=== PATIENT | female | born 1940 | race American Indian/Alaskan Native ===

== ENCOUNTER 2017-12-29 08:18 | Inpatient (IN) | payer MEDICARE ==
[2017-12-27 15:18] VITALS: BMI 35.5
--- NOTE | 2017-12-29 09:18 | CP.PCM.CON ---
History of Present Illness - History of Present Illness History of Present Illness: Orthopedic H&P/consult Patient is a 77 y/o female w/ PMH of RA, HTN, GERD and L TKA who presents for elective R TKA with Dr. Aguirre. Patient has had right knee pain for many years which has progressively worsened over the past few months. Her daily activities , including walking, standing and climbing stairs are severely limited secondary to the pain. She has tried and failed conservative management with oral meds and PT, as well as intra-articular injection. She walks with a cane. Currently the pain is mild, describing it as soreness. It is associated with stiffness and swelling which has progressed. She denies radiation of pain, numbness or tingling. She denies CP/SOB/N/V/D/fever/dysuria/melena. She denies any cardiac events or history of stents/DVT/PE/stroke. Review of Systems - Review of Systems All systems: reviewed and no additional remarkable complaints except Review of Systems: as per HPI Past Patient History - Infectious Disease Hx of Infectious Diseases: None - Past Medical History & Family History Past Medical History?: Yes Past Family History: Reviewed and not pertinent - Past Social History Smoking Status: Never Smoked Alcohol: None Drugs: Denies - CARDIAC Hx Cardiac Disorders: Yes Hx Hypertension: Yes - PULMONARY Hx Respiratory Disorders: No - NEUROLOGICAL Hx Neurological Disorder: No - HEENT Hx HEENT Problems: No - RENAL Hx Chronic Kidney Disease: Yes Other/Comment: CKD - ENDOCRINE/METABOLIC Hx Endocrine Disorders: No - HEMATOLOGICAL/ONCOLOGICAL Hx Blood Disorders: Yes Hx Anemia: Yes Hx Blood Transfusions: Yes - INTEGUMENTARY Hx Dermatological Problems: No - MUSCULOSKELETAL/RHEUMATOLOGICAL Hx Musculoskeletal Disorders: Yes Hx Arthritis: Yes Hx Falls: No Hx Osteoarthritis: Yes Hx Rheumatoid Arthritis: Yes - GASTROINTESTINAL Hx Gastrointestinal Disorders: Yes Hx Gastroesophageal Reflux: Yes - GENITOURINARY/GYNECOLOGICAL Hx Genitourinary Disorders: No - PSYCHIATRIC Hx Psychophysiologic Disorder: No Hx Substance Use: No - SURGICAL HISTORY Hx Surgeries: Yes Hx Hysterectomy: Yes Hx Joint Replacement: Yes (Left TKA 2016) Other/Comment: Hemorroidectomy. - ANESTHESIA Hx Anesthesia: Yes Hx Anesthesia Reactions: No Hx Malignant Hyperthermia: No Meds Allergies/Adverse Reactions: Allergies Allergy/AdvReac Type Severity Reaction Status Date / Time No Known Allergies Allergy Verified 11/19/17 15:06 - Medications Medications: methotrexate Physical Exam - Constitutional Appears: Well, No Acute Distress - Head Exam Head Exam: ATRAUMATIC, NORMOCEPHALIC - Eye Exam Eye Exam: EOMI, Normal appearance - ENT Exam ENT Exam: Mucous Membranes Moist - Respiratory Exam Respiratory Exam: Clear to Auscultation Bilateral, NORMAL BREATHING PATTERN - Cardiovascular Exam Cardiovascular Exam: REGULAR RHYTHM - GI/Abdominal Exam GI & Abdominal Exam: Normal Bowel Sounds, Soft - Extremities Exam Additional comments: Right knee: mild swelling, mild effusion, no tenderness, no lesions sensation intact SP/DP/TN motor intact EHL/FHL/TA/G pedal pulses intact comps soft NT left knee: no swelling, no effusion, no tenderness Old TKR scar well healed sensation intact SP/DP/TN motor intact EHL/FHL/TA/G pedal pulses intact comps soft NT - Neurological Exam Neurological exam: Alert, Oriented x3 - Psychiatric Exam Psychiatric exam: Normal Affect, Normal Mood - Skin Skin Exam: Normal Color, Warm Results - Labs Result Diagrams: 12/29/17 10:21 Assessment & Plan (1) Osteoarthritis of right knee Assessment and Plan: -OR today for R TKA -NPO -CBC & T&C stat -UA -admit to Hospitalist -Pros/cons/risks/benefits of procedure were explained to patient in detail. Patient expresses understanding and agrees to proceed with proposed procedure. -Patient presents preoperatively with Anemia. HGB:8.9 drawn today. Patient desires to proceed with procedure despite this. She agrees to be transfused 2 units of PRBC's. This was discussed with Dr. Aguirre in agreement -above d/w Dr. Aguirre in agreement Status: Acute - Date & Time Date: 12/29/17 Time: :18
[2017-12-29 10:32] LABS: BASO # 0.1 K/uL (0.0-0.2); BASO % 1.3 % (0.0-2.0); EOS # 0.1 K/uL (0.0-0.7); EOS % 2.6 % (0.0-4.0); HEMOGLOBIN 8.9 g/dL (11.0-16.0); LYMPH # 1.3 K/uL (1.0-4.3); LYMPH % 26.7 % (20.0-40.0); MEAN CORPUSCULAR HEMOGLOBIN 31.1 pg (27.0-31.0); MEAN CORPUSCULAR HGB CONC 33.8 g/dL (33.0-37.0); MEAN PLATELET VOLUME 8.5 fL (7.2-11.7); MONO # 0.5 K/uL (0.0-0.8); MONO % 9.9 % (0.0-10.0); NEUT # 2.8 K/uL (1.8-7.0); NEUT % 59.5 % (50.0-75.0); NRBC % 0.1 % (0.0-2.0); RBC 2.85 Mil/uL (3.80-5.20); WHITE BLOOD COUNT 4.7 K/uL (4.8-10.8)
[2017-12-29] MEDS ORDERED: Tranexamic Acid 1,000 MG in Sodium Chloride 0.9% 50 ML IV ONE (10:41)
[2017-12-29] MEDS ORDERED: Bupivacaine 0.25% 20 ML INJ IJ ONE ×2 (12:39→12:42)
[2017-12-29] MEDS ORDERED: Midazolam 2 MG/2 ML VIAL ONE (12:43)
[2017-12-29] MEDS ORDERED: Propofol 10 mg/ml Inj (20 ML) ONE (12:43)
[2017-12-29] MEDS ORDERED: Rocuronium 10 mg/ml (5 ml) ONE (13:14)
[2017-12-29] MEDS ORDERED: ceFAZolin IV 2 gm in Dextrose 2 GM/50 ML BAG IVPB ONE (13:16)
--- NOTE | 2017-12-29 13:20 | PCM.ANESB3 ---
Femoral Nerve Block - Femoral Nerve Block Date of Procedure: 12/29/17 Anesthesiologist: Sandra Pre-Procedure Diagnosis: right knee osteoarthritis Post-Procedure Diagnosis: right knee osteoarthritis Procedure Performed: Femoral Nerve Block Right - Procedure Femoral Nerve Block: The procedure was explained to the patient that it is for the post-operative pain management. Consent was obtained after a thorough discussion with the patient regarding the benefits and possible complications of local anesthetic block of the femoral nerve at the inguinal crease area. The patient was brought to the operating room and standard monitors were applied. Time-out was held with the circulating nurse to confirm the correct surgery and the appropriate block. After applying oxygen by nasal cannula and administering IV Sedation, patient was placed in supine position with fully extended lower extremities and the right groin exposed. The femoral artery was then carefully palpated. The ultrasound transducer was then applied to this area in the transverse plane and the femoral nerve was visualized lateral to the femoral artery and underneath the fascia iliaca. After thorough identification, the inguinal crease area was prepped with chloraprep. At this point, a #22 gauge Stimuplex 4-inch needle was inserted immediately lateral to the femoral artery pulse at the inguinal crease and advanced perpendicularly. The needle was inserted to the ultrasound transducer in-plane towards the femoral nerve in a [id number] direction. Needle advancement was performed carefully under direct ultrasound visualization. Nerve stimulator was used and twitch of the quadriceps muscle was obtained at current of 0.5MA. After negative aspiration, 2cc of 0.25% Bupivacaine + Epi 1:200,000 was injected and this was followed with 28cc of 0.25% Bupivacaine + Epi 1:200,000. Under constant ultrasound guidance the local anesthetics were observed spreading below fascia iliaca and around the femoral nerve. Negative intermittent aspiration. The needle was removed intact and sterile dressing was applied. The patient had stable vital signs, was conscious and in no apparent distress. The patient tolerated the femoral nerve block well with stable vital signs and was prepared for subsequent surgery.
[2017-12-29] MEDS ORDERED: Thrombin Topical 5,000 Int Units Spray Kit ONE (13:39)
[2017-12-29] MEDS ORDERED: Absorbable Gelatin Sponge Size 100 ONE (13:39)
[2017-12-29] MEDS: Bacitracin 150,000 UNIT in Sodium Chloride 0.9% Irrig 3,000 ML IR SCH ×2 (13:45→15:00)
[2017-12-29] MEDS ORDERED: Neostigmine Methylsulfate 3mg/3ml Syringe IV ONE (15:17)
[2017-12-29] MEDS ORDERED: Labetalol 25mg/5ml Syringe ONE (16:11)
[2017-12-29] MEDS ORDERED: Dexamethasone 4 mg/1 ml IVP PRN (16:29)
[2017-12-29] MEDS: HYDROmorphone 0.5 mg/0.5 ml ISec IVP PRN ×4 (16:54→17:48)
--- NOTE | 2017-12-29 17:05 | RAD ---
Date of service: 12/29/2017 PROCEDURE: Right Knee Radiographs. HISTORY: s/p R TKA COMPARISON: None. FINDINGS: Patient status post total right knee arthroplasty prosthetic components seen in good alignment. A small amount expected air and fluid is seen in the suprapatellar bursa. Skin jadyn are present anteriorly. IMPRESSION: Status post total right knee arthroplasty.
[2017-12-29] MEDS ORDERED: Sodium Chloride 0.9% 1,000 ML IV ONE (18:00)
[2017-12-29 18:16] LABS: FLUID TYPE SYNOVIAL FLUID
--- NOTE | 2017-12-29 18:24 | PCM.SURG1 ---
Surgeon's Initial Post Op Note - Surgeon's Notes Surgeon: Carla Mitigation Supervisor: HARESH Pedroza, 2nd assist Lex Frausto PA-C Type of Anesthesia: General Endo, Spinal Anesthesia Administered By: DR Li Pre-Operative Diagnosis: severe tricompasrtmental O/A R knee. morbid obesity Operative Findings: severe tricompartmental O/AQ R knee. tricompartmental synovitis. p[osterior capsular contracture. ]lateral patella contracture Post-Operative Diagnosis: as above Operation Performed: R TKR. posterior capsular release. lateral patella release. anterior and posterior synovectomy. computer navigation Specimen/Specimens Removed: cartilage/synovoium/bone Estimated Blood Loss: EBL {In ML}: 125 Blood Products Given: N/A Drains Used: Wound Vac Post-Op Condition: Fair Date of Surgery/Procedure: 12/29/17 Time of Surgery/Procedure: 13:30 (time in room 12:40/anaesthesia indcution time 1240)
[2017-12-29 19:07] LABS: SF GROSS APPEARANCE CLEAR (CLEAR)
[2017-12-29 19:08] LABS: SYNOVIAL FLUID MONO/MACROPHAGE 18 % (0-0)
--- NOTE | 2017-12-29 19:52 | CP.PCM.HP ---
Addendum entered and electronically signed by Christine Sanderson DO 12/29/17 21:36 : vitamin D level noted on labs 12/09/17 in chart level was 15. Original Note: <Christine Sanderson - Last Filed: 12/29/17 21:24> History of Present Illness - History of Present Illness History of Present Illness: Medicine Note for Hospitalist Service HPI: This is a 77 year old female with PMHx of HTN, RA, Anemia and Constipation who is s/p right total knee replacement POD #0 (12/29/17) by Dr. Aguirre. Patient reports her pain is well controlled. She states she feels a little groggy but otherwise no acute complaints. Denied any associated fever, chills, headache, chest pain, shortness of breath, abdominal pain, n/v/d/c, or urinary symptoms. PMHx: HTN, RA, Anemia, Constipation PSHx: Hysterectomy, L TKR (2017), now R TKR Meds: ASA, Norvasc 5mg daily, MTX once a week, Folic Acid, Protonix, and nabumetone 75mg PO BID, All: NKDA SHx: Denied any tobacco, alcohol or illicit drug use FHx: Unremarkable for any cardiac issues or CVA. Breast CA in mother. Patient's mammograms have been normal up to date; last 2 years ago. PMD: Dr. Hairston ([place], [place]) Rheum: Dr. Blanchard Present on Admission - Present on Admission Any Indicators Present on Admission: No Past Patient History - Infectious Disease Hx of Infectious Diseases: None - Past Medical History & Family History Past Medical History?: Yes - Past Social History Smoking Status: Never Smoked Alcohol: None Drugs: Denies - CARDIAC Hx Cardiac Disorders: Yes Hx Hypertension: Yes - PULMONARY Hx Respiratory Disorders: No - NEUROLOGICAL Hx Neurological Disorder: No - HEENT Hx HEENT Problems: No - RENAL Hx Chronic Kidney Disease: Yes Other/Comment: CKD - ENDOCRINE/METABOLIC Hx Endocrine Disorders: No - HEMATOLOGICAL/ONCOLOGICAL Hx Blood Disorders: Yes Hx Anemia: Yes Hx Blood Transfusions: Yes - INTEGUMENTARY Hx Dermatological Problems: No - MUSCULOSKELETAL/RHEUMATOLOGICAL Hx Musculoskeletal Disorders: Yes Hx Arthritis: Yes Hx Falls: No Hx Osteoarthritis: Yes Hx Rheumatoid Arthritis: Yes - GASTROINTESTINAL Hx Gastrointestinal Disorders: Yes Hx Gastroesophageal Reflux: Yes - GENITOURINARY/GYNECOLOGICAL Hx Genitourinary Disorders: No - PSYCHIATRIC Hx Psychophysiologic Disorder: No Hx Substance Use: No - SURGICAL HISTORY Hx Surgeries: Yes Hx Hysterectomy: Yes Hx Joint Replacement: Yes (Left TKA 2016) Other/Comment: Hemorroidectomy. - ANESTHESIA Hx Anesthesia: Yes Hx Anesthesia Reactions: No Hx Malignant Hyperthermia: No Meds Allergies/Adverse Reactions: Allergies Allergy/AdvReac Type Severity Reaction Status Date / Time No Known Allergies Allergy Verified 04/25/17 15:06 Physical Exam - Constitutional Appears: No Acute Distress - Head Exam Head Exam: NORMAL INSPECTION, NORMOCEPHALIC - Eye Exam Eye Exam: EOMI, Normal appearance, PERRL. absent: Nystagmus, Scleral icterus Pupil Exam: NORMAL ACCOMODATION, PERRL - ENT Exam ENT Exam: Mucous Membranes Moist, Normal Exam - Neck Exam Neck exam: Positive for: Normal Inspection. Negative for: Lymphadenopathy, Thyromegaly - Respiratory Exam Respiratory Exam: Clear to Auscultation Bilateral, NORMAL BREATHING PATTERN. absent: Decreased Breath Sounds - Cardiovascular Exam Cardiovascular Exam: REGULAR RHYTHM, RRR - GI/Abdominal Exam GI & Abdominal Exam: Normal Bowel Sounds, Soft. absent: Distended, Firm, Guarding, Organomegaly, Tenderness - Extremities Exam Extremities exam: Positive for: pedal pulses present Additional comments: right leg braced and ice applied - Neurological Exam Neurological exam: Alert, CN II-XII Intact, Oriented x3 - Psychiatric Exam Psychiatric exam: Normal Affect, Normal Mood - Skin Skin Exam: Dry, Intact, Normal Color, Warm Results - Vital Signs Recent Vital Signs: Last Vital Signs Temp 97 F L 12/29/17 18:00 Pulse 64 12/29/17 18:00 Resp 11 L 12/29/17 18:00 BP 163/83 H 12/29/17 18:00 Pulse Ox 96 12/29/17 18:00 - Labs Result Diagrams: 12/29/17 20:26 Labs: Laboratory Results - last 24 hr 12/29/17 12/29/17 12/29/17 10:21 11:21 18:15 WBC 4.7 L RBC 2.85 L Hgb 8.9 L Hct 26.2 L MCV 92.0 MCH 31.1 H MCHC 33.8 RDW 15.0 H Plt Count 190 MPV 8.5 Neut % (Auto) 59.5 Lymph % (Auto) 26.7 [place] % (Auto) 9.9 Eos % (Auto) 2.6 Baso % (Auto) 1.3 Neut # (Auto) 2.8 Lymph # (Auto) 1.3 [place] # (Auto) 0.5 Eos # (Auto) 0.1 Baso # (Auto) 0.1 Fluid Type Synovial fluid Synovial WBC 15.0 Synovial RBC 346.0 H Synovial Neutrophils 34.0 H Synovial Lymphocytes 48.0 H Synov Monos/Macrophage 18 H Synovial Fluid Comment Blood Type A POSITIVE Antibody Screen Negative Assessment & Plan - Assessment and Plan (Free Text) Plan: Right Total Knee Replacement - 12/29/[address] Aguirre - Patient found to have: severe tricompartmental O/AQ R knee, tricompartmental synovitis, posterior capsular contracture, and lateral patella contracture - F/U right knee tap cytology Medications: - Tylenol, percocet, and dilaudid PRN for pain - Zofran PRN for nausea - PPX with Cefazolin x 2 bags, IVF x 2 bags Hx Anemia - Etiology 2/2 MTX?, Renal Insufficiency? - Resumed Feosal BID - Transfused 3 units PRBCs post op - Baseline hemoglobin ~ 9 seen on labs drawn on 12/09/17 - Will continue to monitor and transfuse as needed, H/H > 10 Hx Renal Insuffiency - Noted on previous labs during last admission 2016, CRE 1.4/5 - CRE 1.5 seen on labs drawn on 12/09/17 - Will continue to monitor Hx HTN - Resumed Norvasc 5mg PO daily - HHD Hx RA - Resumed weekly MTX (due 01/05/18) and Folic Acid daily Hx Constipation - Colace BID, Miralax daily Vitamin D Deficiency - Started on Ergocalcitriol weekly x 6 months IGT - A1C 5.8 noted on labs drawn on 12/09/17 - Encouraged diet, exercise, and weight loss Bilateral Lower Extremity Edema - Outpatient ECHO reviewed (copy in chart); no evidence of HF - Encouraged compression stockings once patient is ambulatory and OK by ortho, for history of bilateral lower extremity swelling. Also to speak to PMD as Norvasc is known to cause edema, for possible change in blood pressure medication. Prophylactic Measures - GI PPX: Protonix - DVT PPX: Lovenox daily, SCDs c/i s/p surgery - Case management referral for TORI placement - PT/OT DW Christine Petty DO, PGY-2 <Rufino Hicks P - Last Filed: 12/30/17 07:08> Results - Vital Signs Recent Vital Signs: Last Vital Signs Temp 97.6 F 12/30/17 05:40 Pulse 76 12/30/17 04:00 Resp 20 12/30/17 04:00 BP 146/82 12/30/17 04:00 Pulse Ox 96 12/30/17 04:00 - Labs Result Diagrams: 12/29/17 20:26 Labs: Laboratory Results - last 24 hr 12/29/17 12/29/17 12/29/17 10:21 11:21 18:15 WBC 4.7 L RBC 2.85 L Hgb 8.9 L Hct 26.2 L MCV 92.0 MCH 31.1 H MCHC 33.8 RDW 15.0 H Plt Count 190 MPV 8.5 Neut % (Auto) 59.5 Lymph % (Auto) 26.7 [place] % (Auto) 9.9 Eos % (Auto) 2.6 Baso % (Auto) 1.3 Neut # (Auto) 2.8 Lymph # (Auto) 1.3 [place] # (Auto) 0.5 Eos # (Auto) 0.1 Baso # (Auto) 0.1 Urine Color Urine Clarity Urine pH Ur Specific [place] Urine Protein Urine Glucose (UA) Urine Ketones Urine Blood Urine Nitrate Urine Bilirubin Urine Urobilinogen Ur Leukocyte Esterase Urine WBC (Auto) Urine RBC (Auto) Ur Squamous Epith Cells Urine Bacteria Hyaline Casts Fluid Type Synovial fluid Synovial WBC 15.0 Synovial RBC 346.0 H Synovial Neutrophils 34.0 H Synovial Lymphocytes 48.0 H Synov Monos/Macrophage 18 H Synovial Fluid Comment Blood Type A POSITIVE Antibody Screen Negative 12/29/17 12/30/17 20:26 06:47 WBC 8.4 D RBC 3.55 L Hgb 11.2 D Hct 32.9 L MCV 92.8 MCH 31.6 H MCHC 34.0 RDW 15.0 H Plt Count 180 MPV 8.1 Neut % (Auto) Lymph % (Auto) [place] % (Auto) Eos % (Auto) Baso % (Auto) Neut # (Auto) Lymph # (Auto) [place] # (Auto) Eos # (Auto) Baso # (Auto) Urine Color Yellow Urine Clarity Hazy Urine pH 5.0 Ur Specific [place] 1.025 Urine Protein 1+ H Urine Glucose (UA) Normal Urine Ketones Negative Urine Blood 1+ H Urine Nitrate Negative Urine Bilirubin Negative Urine Urobilinogen Normal Ur Leukocyte Esterase 3+ H Urine WBC (Auto) 20 H Urine RBC (Auto) 15 H Ur Squamous Epith Cells 41 H Urine Bacteria Occ H Hyaline Casts 3-5 H Fluid Type Synovial WBC Synovial RBC Synovial Neutrophils Synovial Lymphocytes Synov Monos/Macrophage Synovial Fluid Comment Blood Type Antibody Screen Attending/Attestation - Attestation I have personally seen and examined this patient.: Yes I have fully participated in the care of the patient.: Yes I have reviewed all pertinent clinical information: Yes Notes (Text): 12/30/17 07:04 Admitted post right knee surg, h/o chronic anemia, no h/o iron deficiency, patient chronically on methotrexate for RA and NSAIDs, no events with surg. Chronic anemia need out patient w/u, dd of chronic disease vs from methotrexated , vs bm, will check b12. CRI penidng cmp results. Pain control, PT/OT, dc home or rehab depending on the needs, gi/dvt prophylaxis.
[2017-12-29 20:34] LABS: MEAN CELL VOLUME 92.8 fL (81.0-99.0); MEAN CORPUSCULAR HEMOGLOBIN 31.6 pg (27.0-31.0); MEAN PLATELET VOLUME 8.1 fL (7.2-11.7); RBC 3.55 Mil/uL (3.80-5.20)
[2017-12-29 20:38] LABS: HEMOGLOBIN 11.2 g/dL (11.0-16.0); WHITE BLOOD COUNT 8.4 K/uL (4.8-10.8)
[2017-12-29] MEDS: oxyCODONE 5 mg Immediate Release Tab PO PRN (20:51)
[2017-12-29] MEDS: ceFAZolin IV 2 gm in Dextrose 2 GM/50 ML BAG IVPB SCH (21:05)
[2017-12-30] MEDS: HYDROmorphone 1 mg/ml ISec IVP PRN ×4 (01:24→21:56)
[2017-12-30] MEDS: oxyCODONE 5 mg Immediate Release Tab PO PRN (04:35)
[2017-12-30] MEDS: ceFAZolin IV 2 gm in Dextrose 2 GM/50 ML BAG IVPB SCH (04:36)
[2017-12-30] MEDS: Sodium Chloride 0.9% 1,000 ML IV SCH ×2 (04:38)
[2017-12-30 06:54] LABS: SQUAMOUS EPITHIAL 41 /hpf (0-5); URINE BACTERIA OCC (<OCC); URINE BILIRUBIN NEGATIVE (NEGATIVE); URINE CLARITY Hazy (Clear); URINE COLOR Yellow (YELLOW); URINE GLUCOSE (UA) NORMAL (Normal); URINE LEUKOCYTE ESTERASE 3+ Leu/uL (Negative); URINE PROTEIN 1+ mg/dL (NEGATIVE); URINE UROBILINOGEN NORMAL mg/dL (0.2-1.0)
[2017-12-30 06:55] LABS: URINE BLOOD 1+ (NEGATIVE)
[2017-12-30 07:22] LABS: BASO % 0.5 % (0.0-2.0); EOS # 0.1 K/uL (0.0-0.7); EOS % 1.1 % (0.0-4.0); HEMOGLOBIN 10.1 g/dL (11.0-16.0); LYMPH # 0.8 K/uL (1.0-4.3); LYMPH % 12.1 % (20.0-40.0); MEAN CELL VOLUME 92.4 fL (81.0-99.0); MEAN CORPUSCULAR HEMOGLOBIN 31.3 pg (27.0-31.0); MEAN CORPUSCULAR HGB CONC 33.9 g/dL (33.0-37.0); MONO # 0.9 K/uL (0.0-0.8); MONO % 12.7 % (0.0-10.0); NEUT # 5.1 K/uL (1.8-7.0); NEUT % 73.6 % (50.0-75.0); RBC 3.23 Mil/uL (3.80-5.20); RED CELL DISTRIBUTION WIDTH 15.2 % (11.5-14.5); WHITE BLOOD COUNT 6.9 K/uL (4.8-10.8)
[2017-12-30 07:36] LABS: ALB/GLOB RATIO 1.1 (1.0-2.1); ALBUMIN 3.5 g/dL (3.5-5.0); CALCIUM 8.3 mg/dl (8.6-10.4)
[2017-12-30] MEDS: Pantoprazole 40 mg EC Tab PO SCH (09:58)
[2017-12-30] MEDS: POLYETHYLENE GLYCOL 3350 17 GM/Dose PACKET PO SCH (09:58)
[2017-12-30] MEDS ORDERED: Ergocalciferol 50,000 Intl Units Cap PO SCH (10:00)
--- NOTE | 2017-12-30 10:53 | CP.PCM.PN ---
Subjective - Date & Time of Evaluation Date of Evaluation: 12/30/17 Time of Evaluation: 10:49 - Subjective Subjective: Patient states she has some pain in her knee, but that the pain medication is helping. Denies CP/SOB/dizziness/numbness/tingling. Objective - Vital Signs/Intake and Output Vital Signs (last 24 hours): Temp Pulse Resp BP Pulse Ox 98.4 F 81 20 144/75 98 12/30/17 07:30 12/30/17 07:30 12/30/17 07:30 12/30/17 07:30 12/30/17 07:30 Intake and Output: 12/30/17 12/30/17 06:59 18:59 Intake Total 1600 Output Total 150 Balance 1450 - Medications Medications: Current Medications Acetaminophen (Tylenol 325mg Tab) 650 mg PO Q6 [facility] Last Admin: 12/30/17 05:40 Dose: Not Given Amlodipine Besylate (Norvasc) 5 mg PO DAILY [facility] Last Admin: 12/30/17 09:58 Dose: 5 mg Docusate Sodium (Colace) 100 mg PO BID [facility] Last Admin: 12/30/17 09:58 Dose: 100 mg Enoxaparin Sodium (Lovenox) 40 mg SC Q24H [facility] Ergocalciferol (Drisdol 50,000 Intl Units Cap) 1 cap PO Q7D [facility] Last Admin: 12/30/17 09:58 Dose: 1 cap Ferrous Sulfate (Feosol) 325 mg PO BID [facility] Last Admin: 12/30/17 09:58 Dose: 325 mg Folic Acid (Folic Acid) 1 mg PO DAILY [facility] Last Admin: 12/30/17 09:58 Dose: 1 mg Hydromorphone HCl (Dilaudid) 1 mg IVP Q4H PRN PRN Reason: Pain, severe (8-10) Last Admin: 12/30/17 10:02 Dose: 1 mg Ceftriaxone Sodium 1 gm/ (Sodium Chloride) 100 mls @ 100 mls/hr IVPB Q24H [facility] PRN Reason: Protocol Methotrexate (Methotrexate) 10 mg PO QWK [facility] Ondansetron HCl (Zofran Inj) 4 mg IVP Q6H PRN PRN Reason: Nausea/Vomiting Oxycodone HCl (Oxycodone Immediate Release Tab) 10 mg PO Q4H PRN PRN Reason: Pain, moderate (4-7) Last Admin: 12/30/17 04:35 Dose: 10 mg Pantoprazole Sodium (Protonix Ec Tab) 40 mg PO DAILY [facility] Pneumococcal Polyvalent Vaccine (Pneumovax 23 Vaccine) 0.5 ml IM .ONCE ONE Stop: 12/31/17 14:01 Polyethylene Glycol (Miralax) 17 gm PO DAILY [facility] Last Admin: 12/30/17 09:58 Dose: 17 gm - Labs Labs: 12/30/17 07:15 12/30/17 07:15 - Extremities Exam Additional comments: +ROM ankle/toes, sensation intact +DP/PT pulses calves soft NT neg homans dressing intact Assessment and Plan (1) Osteoarthritis of right knee Assessment & Plan: POD#1 s/p right TKR f/u labs PT/OT VTE proph d/c planning d/w Dr. Aguirre, agrees with above Status: Acute (2) Vitamin D deficiency Assessment & Plan: supp Status: Chronic (3) Anemia Assessment & Plan: transfused 2u PRBC pre op Status: Chronic (4) Acute blood loss anemia Assessment & Plan: acute on chronic s/p TKR Status: Acute
--- NOTE | 2017-12-30 11:27 | CP.PCM.DIS ---
Provider - Provider Date of Admission: 12/29/17 08:18 Attending physician: Tony Malhotra DO Time Spent in preparation of Discharge (in minutes): 45 Hospital Course - Lab Results Lab Results: Micro Results 12/29/17 15:32 Knee Right Gram Stain - Final 12/29/17 Unknown Knee - Right Gram Stain - Final 12/29/17 Unknown Knee - Right Gram Stain - Final 12/29/17 Unknown Knee - Right Gram Stain - Final 12/29/17 Unknown Knee - Right Gram Stain - Final 12/29/17 Unknown Knee - Right Gram Stain - Final 12/29/17 Unknown Knee - Right Gram Stain - Final 12/29/17 Unknown Synovial Fluid Gram Stain - Final 12/29/17 Unknown Knee - Right Gram Stain - Final 12/29/17 Unknown Knee - Right Gram Stain - Final Most Recent Lab Values WBC 6.9 K/uL (4.8-10.8) 12/30/17 07:15 RBC 3.23 Mil/uL (3.80-5.20) L 12/30/17 07:15 Hgb 10.1 g/dL (11.0-16.0) L 12/30/17 07:15 Hct 29.8 % (34.0-47.0) L 12/30/17 07:15 MCV 92.4 fL (81.0-99.0) 12/30/17 07:15 MCH 31.3 pg (27.0-31.0) H 12/30/17 07:15 MCHC 33.9 g/dL (33.0-37.0) 12/30/17 07:15 RDW 15.2 % (11.5-14.5) H 12/30/17 07:15 Plt Count 156 K/uL (130-400) 12/30/17 07:15 MPV 8.0 fL (7.2-11.7) 12/30/17 07:15 Neut % (Auto) 73.6 % (50.0-75.0) 12/30/17 07:15 Lymph % (Auto) 12.1 % (20.0-40.0) L 12/30/17 07:15 [place] % (Auto) 12.7 % (0.0-10.0) H 12/30/17 07:15 Eos % (Auto) 1.1 % (0.0-4.0) 12/30/17 07:15 Baso % (Auto) 0.5 % (0.0-2.0) 12/30/17 07:15 Neut # (Auto) 5.1 K/uL (1.8-7.0) 12/30/17 07:15 Lymph # (Auto) 0.8 K/uL (1.0-4.3) L 12/30/17 07:15 [place] # (Auto) 0.9 K/uL (0.0-0.8) H 12/30/17 07:15 Eos # (Auto) 0.1 K/uL (0.0-0.7) 12/30/17 07:15 Baso # (Auto) 0.0 K/uL (0.0-0.2) 12/30/17 07:15 Sodium 139 mmol/L (132-148) 12/30/17 07:15 Potassium 4.3 mmol/L (3.6-5.2) 12/30/17 07:15 Chloride 103 mmol/L (98-107) 12/30/17 07:15 Carbon Dioxide 25 mmol/L (22-30) 12/30/17 07:15 Anion Gap 15 (10-20) 12/30/17 07:15 BUN 13 mg/dL (7-17) 12/30/17 07:15 Creatinine 1.1 mg/dL (0.7-1.2) 12/30/17 07:15 Est GFR ( Amer) 58 12/30/17 07:15 Est GFR (Non-Af Amer) 48 12/30/17 07:15 Random Glucose 109 mg/dL (65-105) H 12/30/17 07:15 Calcium 8.3 mg/dl (8.6-10.4) L 12/30/17 07:15 Total Bilirubin 0.6 mg/dL (0.2-1.3) 12/30/17 07:15 AST 34 U/L (14-36) 12/30/17 07:15 ALT 20 U/L (9-52) 12/30/17 07:15 Alkaline Phosphatase 70 U/L (38-126) 12/30/17 07:15 Total Protein 6.8 g/dL (6.3-8.3) 12/30/17 07:15 Albumin 3.5 g/dL (3.5-5.0) 12/30/17 07:15 Globulin 3.3 gm/dL (2.2-3.9) 12/30/17 07:15 Albumin/Globulin Ratio 1.1 (1.0-2.1) 12/30/17 07:15 Vitamin B12 332 pg/mL (239-931) 12/30/17 07:15 25-OH Vitamin D Total < 12.8 NG/ML (30.0-100.0) L 12/30/17 07:15 Urine Color Yellow (YELLOW) 12/30/17 06:47 Urine Clarity Hazy (Clear) 12/30/17 06:47 Urine pH 5.0 (5.0-8.0) 12/30/17 06:47 Ur Specific [place] 1.025 (1.003-1.030) 12/30/17 06:47 Urine Protein 1+ mg/dL (NEGATIVE) H 12/30/17 06:47 Urine Glucose (UA) Normal mg/dL (Normal) 12/30/17 06:47 Urine Ketones Negative mg/dL (NEGATIVE) 12/30/17 06:47 Urine Blood 1+ (NEGATIVE) H 12/30/17 06:47 Urine Nitrate Negative (NEGATIVE) 12/30/17 06:47 Urine Bilirubin Negative (NEGATIVE) 12/30/17 06:47 Urine Urobilinogen Normal mg/dL (0.2-1.0) 12/30/17 06:47 Ur Leukocyte Esterase 3+ Sg/uL (Negative) H 12/30/17 06:47 Urine WBC (Auto) 20 /hpf (0-5) H 12/30/17 06:47 Urine RBC (Auto) 15 /hpf (0-3) H 12/30/17 06:47 Ur Squamous Epith Cells 41 /hpf (0-5) H 12/30/17 06:47 Urine Bacteria Occ (<OCC) H 12/30/17 06:47 Hyaline Casts 3-5 /lpf (0-2) H 12/30/17 06:47 Fluid Type Synovial fluid 12/29/17 18:15 Synovial WBC 15.0 /mm3 (0.0-150.0) 12/29/17 18:15 Synovial RBC 346.0 /mm3 (0.0-0.0) H 12/29/17 18:15 Synovial Neutrophils 34.0 % (0-0) H 12/29/17 18:15 Synovial Lymphocytes 48.0 % (0-0) H 12/29/17 18:15 Synov Monos/Macrophage 18 % (0-0) H 12/29/17 18:15 Synovial Fluid Comment 12/29/17 18:15 Blood Type A POSITIVE 12/29/17 11:21 Antibody Screen Negative 12/29/17 11:21 Discharge Exam - Head Exam Head Exam: NORMAL INSPECTION, NORMOCEPHALIC Discharge Plan - Follow Up Plan Condition: GOOD Disposition: HOME/ ROUTINE
--- NOTE | 2017-12-30 11:28 | CP.PCM.PN ---
<Flako Chavez - Last Filed: 12/30/17 13:34> Subjective - Date & Time of Evaluation Date of Evaluation: 12/30/17 Time of Evaluation: 11:28 - Subjective Subjective: PGY-[address] Tony Malhotra service Patient is seen and examined at bedside. Patient is S/P Right Total Knee Replacement post operative day 1. Patient states feeling soreness and stiffness in the right leg, getting worsen with movement. Patient is controlled with pain medications. Patient also complains with sore pain in the left, which patient had a Left total knee replacement done in the left knee in 2017. Patient is eating and drinking well. Patient denies fevers, chills, SOB, chest pain, abdominal pain, headaches, dizziness, nausea, vomiting, diarrhea, constipation or dysuria Objective - Vital Signs/Intake and Output Vital Signs (last 24 hours): Temp Pulse Resp BP Pulse Ox 98.4 F 81 20 144/75 98 12/30/17 07:30 12/30/17 07:30 12/30/17 07:30 12/30/17 07:30 12/30/17 07:30 Intake and Output: 12/30/17 12/30/17 06:59 18:59 Intake Total 1600 Output Total 150 Balance 1450 - Medications Medications: Current Medications Acetaminophen (Tylenol 325mg Tab) 650 mg PO Q6 [facility] Last Admin: 12/30/17 05:40 Dose: Not Given Amlodipine Besylate (Norvasc) 5 mg PO DAILY [facility] Last Admin: 12/30/17 09:58 Dose: 5 mg Docusate Sodium (Colace) 100 mg PO BID [facility] Last Admin: 12/30/17 09:58 Dose: 100 mg Enoxaparin Sodium (Lovenox) 40 mg SC Q24H [facility] Ergocalciferol (Drisdol 50,000 Intl Units Cap) 1 cap PO Q7D [facility] Last Admin: 12/30/17 09:58 Dose: 1 cap Ferrous Sulfate (Feosol) 325 mg PO BID [facility] Last Admin: 12/30/17 09:58 Dose: 325 mg Folic Acid (Folic Acid) 1 mg PO DAILY [facility] Last Admin: 12/30/17 09:58 Dose: 1 mg Hydromorphone HCl (Dilaudid) 1 mg IVP Q4H PRN PRN Reason: Pain, severe (8-10) Last Admin: 12/30/17 10:02 Dose: 1 mg Ceftriaxone Sodium 1 gm/ (Sodium Chloride) 100 mls @ 100 mls/hr IVPB Q24H [facility] PRN Reason: Protocol Methotrexate (Methotrexate) 10 mg PO QWK [facility] Ondansetron HCl (Zofran Inj) 4 mg IVP Q6H PRN PRN Reason: Nausea/Vomiting Oxycodone HCl (Oxycodone Immediate Release Tab) 10 mg PO Q4H PRN PRN Reason: Pain, moderate (4-7) Last Admin: 12/30/17 04:35 Dose: 10 mg Pantoprazole Sodium (Protonix Ec Tab) 40 mg PO DAILY [facility] Last Admin: 12/30/17 09:58 Dose: 40 mg Pneumococcal Polyvalent Vaccine (Pneumovax 23 Vaccine) 0.5 ml IM .ONCE ONE Stop: 12/31/17 14:01 Polyethylene Glycol (Miralax) 17 gm PO DAILY [facility] Last Admin: 12/30/17 09:58 Dose: 17 gm - Labs Labs: 12/30/17 07:15 12/30/17 07:15 - Constitutional Appears: Well, Non-toxic, No Acute Distress - Head Exam Head Exam: ATRAUMATIC, NORMAL INSPECTION, NORMOCEPHALIC - Eye Exam Eye Exam: EOMI, Normal appearance - ENT Exam ENT Exam: Mucous Membranes Dry - Neck Exam Neck Exam: Full ROM, Normal Inspection - Respiratory Exam Respiratory Exam: Clear to Ausculation Bilateral, NORMAL BREATHING PATTERN. absent: Rales, Rhonchi, Wheezes - Cardiovascular Exam Cardiovascular Exam: REGULAR RHYTHM, +S1, +S2 - GI/Abdominal Exam GI & Abdominal Exam: Soft, Normal Bowel Sounds - Extremities Exam Additional comments: full left leg brace in place with ice pack. Patient has sensation in left toes, full active ROM - Back Exam Back Exam: NORMAL INSPECTION - Neurological Exam Neurological Exam: Alert, Awake, Oriented x3 - Psychiatric Exam Psychiatric exam: Normal Affect, Normal Mood - Skin Skin Exam: Intact, Normal Color, Warm Assessment and Plan - Assessment and Plan (Free Text) Plan: Right Total Knee Replacement - 12/29/[address] Aguirre - post operative day 1, in no acute distress - pain controlled with medications listed below - F/U Dr Aguirre, ortho recs -F/U Right knee tap cytology -discontinued IVF, patient is eating and drinking. -F/U am labs, no abx at this time Medications: - Tylenol, percocet, and dilaudid PRN for pain - Zofran PRN for nausea - PPX with Cefazolin x 2 bags, IVF x 2 bags Hx Anemia - 12/30 Hgb 10.1, 11.2 previous day - Resumed Feosal BID - Transfused 3 units PRBCs post op - Will continue to monitor and transfuse as needed, H/H > 10 Hx Renal Insuffiency - 12/30 Cr: 1.1 - Noted on previous labs during last admission 2016, CRE 1.4/5 - CRE 1.5 seen on labs drawn on 12/09/17 - Will continue to monitor Hx HTN - continue Norvasc 5mg PO daily - HHD Hx RA - Resumed weekly MTX (due 01/05/18) and Folic Acid daily Hx Constipation - Colace BID, Miralax daily Vitamin D Deficiency - 25 OH vitamin D less than 12.8 - Started on Ergocalcitriol weekly x 6 months IGT - A1C 5.8 noted on labs drawn on 12/09/17 - Encouraged diet, exercise, and weight loss Bilateral Lower Extremity Edema - Outpatient ECHO reviewed (copy in chart); no evidence of HF - continue to monitor, consider medication interaction. follow up labs, BUN/Cr levels. Prophylactic Measures - GI PPX: Protonix - DVT PPX: Lovenox daily, SCDs c/i s/p surgery - Case management referral for TORI placement - F/U based on PT recs - PT/OT -- Patient was able to get up and walk around hospital. follow recs regarding TCU (trasitional care unit) vs TORI Plan discussed with Dr Tony Chavez, PGY-1 <Tony Malhotra H - Last Filed: 12/30/17 15:43> Objective - Vital Signs/Intake and Output Vital Signs (last 24 hours): Temp Pulse Resp BP Pulse Ox 98.4 F 81 20 144/75 98 12/30/17 07:30 12/30/17 07:30 12/30/17 07:30 12/30/17 07:30 12/30/17 07:30 Intake and Output: 12/30/17 12/30/17 06:59 18:59 Intake Total 1600 Output Total 150 Balance 1450 - Medications Medications: Current Medications Acetaminophen (Tylenol 325mg Tab) 650 mg PO Q6 [facility] Last Admin: 12/30/17 12:54 Dose: 650 mg Amlodipine Besylate (Norvasc) 5 mg PO DAILY [facility] Last Admin: 12/30/17 09:58 Dose: 5 mg Docusate Sodium (Colace) 100 mg PO BID [facility] Last Admin: 12/30/17 09:58 Dose: 100 mg Enoxaparin Sodium (Lovenox) 40 mg SC Q24H [facility] Last Admin: 12/30/17 14:56 Dose: 40 mg Ergocalciferol (Drisdol 50,000 Intl Units Cap) 1 cap PO Q7D [facility] Last Admin: 12/30/17 09:58 Dose: 1 cap Ferrous Sulfate (Feosol) 325 mg PO BID [facility] Last Admin: 12/30/17 09:58 Dose: 325 mg Folic Acid (Folic Acid) 1 mg PO DAILY [facility] Last Admin: 12/30/17 09:58 Dose: 1 mg Hydromorphone HCl (Dilaudid) 1 mg IVP Q4H PRN PRN Reason: Pain, severe (8-10) Last Admin: 12/30/17 14:56 Dose: 1 mg Ceftriaxone Sodium 1 gm/ (Sodium Chloride) 100 mls @ 100 mls/hr IVPB Q24H [facility] PRN Reason: Protocol Methotrexate (Methotrexate) 10 mg PO QWK [facility] Last Admin: 12/30/17 11:35 Dose: 10 mg Ondansetron HCl (Zofran Inj) 4 mg IVP Q6H PRN PRN Reason: Nausea/Vomiting Oxycodone HCl (Oxycodone Immediate Release Tab) 10 mg PO Q4H PRN PRN Reason: Pain, moderate (4-7) Last Admin: 12/30/17 04:35 Dose: 10 mg Pantoprazole Sodium (Protonix Ec Tab) 40 mg PO DAILY [facility] Last Admin: 12/30/17 09:58 Dose: 40 mg Pneumococcal Polyvalent Vaccine (Pneumovax 23 Vaccine) 0.5 ml IM .ONCE ONE Stop: 12/31/17 14:01 Polyethylene Glycol (Miralax) 17 gm PO DAILY [facility] Last Admin: 12/30/17 09:58 Dose: 17 gm - Labs Labs: 12/30/17 07:15 12/30/17 07:15 Attending/Attestation - Attestation I have personally seen and examined this patient.: Yes I have fully participated in the care of the patient.: Yes I have reviewed all pertinent clinical information, including history, physical exam and plan: Yes Notes (Text): 12/30/17 15:40 Medical attending: Patient was seen and examined by me. Agree with the above note by the resident The patient was not in any acute distress when we saw her. She reported pain, however it was controlled by the current regimen. There was a slight drop in the Hgb, we will continue to monitor for now There is a history of severe RA for which she is on methotrexate for. Also history of the other knee being replaced last year as well. This morning was able to participate with PT. We encouraged patient to use the incentive spirometer. Tony Malhotra
[2017-12-30] MEDS: Enoxaparin 40 mg Syringe SC SCH (14:56)
--- NOTE | 2017-12-31 00:04 | OP ---
PROCEDURE DATE: 12/29/2017 PREOPERATIVE DIAGNOSES: 1. Severe tricompartmental osteoarthritis of the right knee. 2. Morbid obesity. POSTOPERATIVE DIAGNOSES: 1. Severe tricompartmental osteoarthritis of the right knee. 2. Posterior capsular contracture. 3. Synovitis, anterior and posterior compartments tricompartmentally. 4. Lateral patellar retinacular contracture. 5. Morbid obesity. OPERATIVE PROCEDURES: 1. Right total knee replacement. 2. Posterior capsular release. 3. Lateral patellar retinacular release. 4. Anterior and posterior synovectomy. 5. Computer navigation. OPERATIVE FINDINGS: Severe tricompartmental osteoarthritis of the right knee, tricompartmental synovitis, posterior capsular contracture, lateral patellar contracture, morbid obesity. SPECIMENS REMOVED: Cartilage, synovium, bone. ESTIMATED BLOOD LOSS: Approximately 125 mL. BLOOD PRODUCTS GIVEN: No blood products given. DRAINS USED: No drains. Wound VAC employed. POSTOPERATIVE CONDITION: Fair. TIME OF PROCEDURE: 1330. Time in the room, anesthesia induction time: 1240. OPERATIVE INDICATION: Zeina London is a 77-year-old woman, well known to my practice who presents with severe pain and restricted range of motion of the right knee. The patient is status post successful left total knee replacement arthroplasty. The patient to her credit has undergone weight loss, but she is still unfortunately morbidly obese. The patient now presents for right knee replacement arthroplasty. The pros, cons, risks, and benefits of the surgical approach were discussed. The possibility of mechanical failure, infection, thromboembolic disease, secondary or tertiary surgery was discussed. The patient can no longer withstand the discomfort and wished the surgery to be accomplished. OPERATIVE PROCEDURE: After having obtained informed consent in the above fashion, after thoroughly discussing alternative procedures, benign neglect, arthroscopy, after having identified the side, site, and procedure in a critical pause/ timeout, after the satisfactory induction of the anesthetic, the patient identified as Zeina London in the supine position with all bony prominences well padded, the right lower extremity was prepped and free draped in the usual fashion for lower extremity surgery. A tourniquet had been applied, but was not yet inflated. After exsanguinating the limb, using a 6-inch Esmarch bandage, the tourniquet, which had been applied, was inflated to 350 mmHg. This having been accomplished, a 6-inch straight midline approach was made to the knee. Skin incision was carried out through the skin and the subcutaneous tissue. A medial arthrotomy was accomplished. The patella was everted. The knee was flexed. Dissection was carried around posteromedially to the direct head of the semimembranous tendon. Anterior and posterior cruciate ligaments were excised. Medial and lateral meniscectomies were accomplished. The tibia was dislocated anteriorly and the initial osteotomy of the arthroplasty was accomplished on the tibial side. It should be noted that computer navigation was employed using the accelerometer/Nearline technique. The fixation pins for the anterior tibial strut are fixed to the proximal medial tibia. The extensor was placed as with the accelerometer. Registration of the ____ set to the posterior insertion of the anterior cruciate ligament and the medial and lateral menisci were identified. This having been accomplished, the varus valgus were set to 0 degrees, posterior slope 3.5 degrees at a depth of approximately 2 mm below the deficient medial side, the patient has extreme deformity with some ligamentous laxity. This have been accomplished, the initial osteotomies were accomplished on the tibial side. The iliotibial band insertion to the lateral aspect of the tibia was relieved and at this point in time having successfully completed the tibial osteotomy, the tibia was relocated below the femur. Notch osteophytes and border osteophytes were debrided at this point in time. There was found to be a posterior capsular contracture and exuberant and severe tricompartmental synovitis. Anterior and posterior synovectomies were accomplished at this point in time using the electrocautery and hemostasis controlled with Aquamantys. This having been accomplished, the guidepin was placed superiorly to the intercondylar notch for the computer navigation. Distal femoral cutting guide was affixed. The accelerometer was affixed as well as the sensor. The hip center was found and registered at this point in time. The distal femoral cut was set to 0 degrees varus valgus on the mechanical axis and the flexions for approximately 1 degree of flexion for the femoral component. The distal femoral cut was accomplished in that attitude at a depth of 9 mm. This having been accomplished, the anterior and posterior girth of the femur were measured and found to be approximately #5 femoral component. #5 femoral block was applied along the epicondylar access and the pinholes were affixed for the distal femoral cutting block. Distal femoral cutting block #5 was applied. Anterior and posterior femoral osteotomies were accomplished as well as the chamfer cuts. This having been accomplished, the lamina furnace tender was placed. The posterior capsule was released. The posterior capsule was found to be contracted. It was carefully released from the posterior recess of the femoral condyle. Posterior capsular contracture having been accomplished, the #5 femoral trial was applied. Attention was turned to the tibia. The tibial plate was applied according to the guides through rotation being lateral aspect of the tibial condyle, mid malleolar axis, and medial third of the tibial tuberosity. This having been accomplished, the #4 tibial plate was applied and punched and prepared. Trialling of the device was accomplished using #17 mm tibial polyethylene. The knee was reduced and found to be in excellent balance and stable in all planes. There was found to be a lateral patellar retinacular contracture and a lateral patellar retinacular release was accomplished to satisfy this. This having been accomplished, the patella was everted, the patellar osteotomies accomplished, the patellar groove was found to be approximately 30 mm. The patellar osteotomy was accomplished sizing for the #3 patella, the #2 patella was accomplished. The patella was reduced and flexion and extension balance and patellar balance were found to be excellent. This having been accomplished, the trials were removed and the trochlear milling device was applied to the distal aspect of the femur. The trochlea was milled and found to be in acceptable position. This having been accomplished, the femur, tibia, and patella were prepared using a waterpick and cementation was accomplished using #5 symmetric femoral component, #4 symmetric tibial tray, 17 mm polyethelene, #2 polyethelene patella. The knee is reduced and found to be stable in all planes. Excess cement was curetted. The position was found to be excellent. There was no instability. Balance and flexion and extension were excellent as well as patellar balance. The tourniquet was deflated. Hemostasis was controlled. Closures in layers, #2 FiberWire followed by 0 Vicryl and 2-0 Vicryl and jadyn for skin. The ELHAM wound dressing was applied, Barrie Leach compression dressing and knee immobilizer. The operation could not have been completed without the assistantship of Lex Mahajan PA-C; and Glory Larkin, certified registered nursing assistant inventory manager. The patient is transferred from the operating table to stretcher having tolerated the procedure well. Fercho Aguirre MD
[2017-12-31] MEDS: oxyCODONE 5 mg Immediate Release Tab PO PRN (06:19)
--- NOTE | 2017-12-31 07:09 | CP.PCM.PN ---
<Bhavani Gamez P - Last Filed: 12/31/17 13:04> Subjective - Date & Time of Evaluation Date of Evaluation: 12/31/17 Time of Evaluation: 07:08 - Subjective Subjective: PGY-1 note for hospitalist service Patient is seen and examined at bedside. Patient is S/P Right Total Knee Replacement post operative day 2. Patient states her pain is a 8/10 after walking with a walker with physical therapy this morning. States her pain was significant last night as well. She is eating and urinating. Has not had a bowel movement yet. Patient had a fever overnight. Denies chills, nausea, vomiting, abdominal pain, urinary symptoms headache and dizziness. Objective - Vital Signs/Intake and Output Vital Signs (last 24 hours): Temp Pulse Resp BP Pulse Ox 98.7 F 102 H 20 153/82 H 96 12/31/17 06:50 12/31/17 04:00 12/31/17 04:00 12/31/17 04:00 12/31/17 04:00 - Medications Medications: Current Medications Acetaminophen (Tylenol 325mg Tab) 650 mg PO Q6 [facility] Last Admin: 12/31/17 06:52 Dose: Not Given Amlodipine Besylate (Norvasc) 5 mg PO DAILY [facility] Last Admin: 12/30/17 09:58 Dose: 5 mg Docusate Sodium (Colace) 100 mg PO BID [facility] Last Admin: 12/30/17 17:36 Dose: 100 mg Enoxaparin Sodium (Lovenox) 40 mg SC Q24H [facility] Last Admin: 12/30/17 14:56 Dose: 40 mg Ergocalciferol (Drisdol 50,000 Intl Units Cap) 1 cap PO Q7D [facility] Last Admin: 12/30/17 09:58 Dose: 1 cap Ferrous Sulfate (Feosol) 325 mg PO BID [facility] Last Admin: 12/30/17 17:36 Dose: 325 mg Folic Acid (Folic Acid) 1 mg PO DAILY [facility] Last Admin: 12/30/17 09:58 Dose: 1 mg Hydromorphone HCl (Dilaudid) 1 mg IVP Q4H PRN PRN Reason: Pain, severe (8-10) Last Admin: 12/30/17 21:56 Dose: 1 mg Ceftriaxone Sodium 1 gm/ (Sodium Chloride) 100 mls @ 100 mls/hr IVPB Q24H [facility] PRN Reason: Protocol Last Admin: 12/30/17 18:55 Dose: 100 mls/hr Methotrexate (Methotrexate) 10 mg PO QWK [facility] Last Admin: 12/30/17 11:35 Dose: 10 mg Ondansetron HCl (Zofran Inj) 4 mg IVP Q6H PRN PRN Reason: Nausea/Vomiting Oxycodone HCl (Oxycodone Immediate Release Tab) 10 mg PO Q4H PRN PRN Reason: Pain, moderate (4-7) Last Admin: 12/31/17 06:19 Dose: 10 mg Pantoprazole Sodium (Protonix Ec Tab) 40 mg PO DAILY [facility] Last Admin: 12/30/17 09:58 Dose: 40 mg Pneumococcal Polyvalent Vaccine (Pneumovax 23 Vaccine) 0.5 ml IM .ONCE ONE Stop: 12/31/17 14:01 Polyethylene Glycol (Miralax) 17 gm PO DAILY [facility] Last Admin: 12/30/17 09:58 Dose: 17 gm - Labs Labs: 12/30/17 07:15 12/30/17 07:15 - Constitutional Appears: No Acute Distress (but uncomfortable with pain) - Head Exam Head Exam: ATRAUMATIC, NORMOCEPHALIC - Eye Exam Eye Exam: EOMI, Normal appearance - ENT Exam ENT Exam: Mucous Membranes Moist - Neck Exam Neck Exam: Full ROM - Respiratory Exam Respiratory Exam: Clear to Ausculation Bilateral. absent: Decreased Breath Sounds, Rales, Rhonchi, Wheezes - Cardiovascular Exam Cardiovascular Exam: REGULAR RHYTHM, +S1, +S2 - GI/Abdominal Exam GI & Abdominal Exam: Soft, Normal Bowel Sounds. absent: Guarding, Rigid, Tenderness - Extremities Exam Additional comments: RLE with aleks bandage from thigh to toes, knee brace noted. Sensation intact, capillary refill <2 seconds, able to move toes. LLE: 1+ pitting edema to ankle with mild tenderness to palpation. Full ROM. sensation intact. capillary refill <2 seconds. - Neurological Exam Neurological Exam: Alert, Awake, Oriented x3 - Psychiatric Exam Psychiatric exam: Normal Mood - Skin Skin Exam: Normal Color, Warm Assessment and Plan - Assessment and Plan (Free Text) Plan: Right Total Knee Replacement - 12/29/[address] Aguirre - post operative day 2 - pain controlled with medications listed below - F/U Dr Aguirre, ortho recs -F/U Right knee tap cytology -discontinued IVF, patient is eating and drinking. -F/U am labs, no abx at this time Medications: - Tylenol 650mg PO Q6H - oxycodone 10mg Q4H -dilaudid 1mg IVP Q4PRN - Zofran 4mg IVP Q6H PRN for nausea - PPX with Cefazolin x 2 bags, IVF x 2 bags Hx Anemia - 12/30 Hgb 10.1-> 9.3 12/31 - Resumed Feosal 325mg BID - Transfused 3 units PRBCs post op - Will continue to monitor and transfuse as needed, H/H > 10 Post op Fever -CXR 12/31/17: no active disease -UA -Urine cx Hx Renal Insuffiency - 12/31 Cr: 1.1 - CRE 1.5 seen on labs drawn on 12/09/17 - Will continue to monitor Hx HTN - Norvasc 10mg PO daily - HHD Hx RA - weekly MTX (due 01/05/18) and Folic Acid daily Hx Constipation - Colace BID, Miralax daily Vitamin D Deficiency - 25 OH vitamin D less than 12.8 - Ergocalcitriol weekly x 6 months IGT - A1C 5.8 noted on labs drawn on 12/09/17 - Encouraged diet, exercise, and weight loss Bilateral Lower Extremity Edema - Outpatient ECHO reviewed (copy in chart); no evidence of HF - continue to monitor, consider medication interaction. follow up labs, BUN/Cr levels. Prophylactic Measures - GI PPX: Protonix - DVT PPX: Lovenox daily, SCDs c/i s/p surgery - Case management referral for T[facility]I placement - F/U based on PT recs - PT/OT- Patient was able to get up and walk around hospital. rec: TORI Pt to go to [facility] tomorrow for TORI. <Tony Malhotra H - Last Filed: 12/31/17 14:12> Objective - Vital Signs/Intake and Output Vital Signs (last 24 hours): Temp Pulse Resp BP Pulse Ox 98.7 F 95 H 20 149/50 L 96 12/31/17 07:55 12/31/17 07:55 12/31/17 07:55 12/31/17 07:55 12/31/17 07:55 - Medications Medications: Current Medications Acetaminophen (Tylenol 325mg Tab) 650 mg PO Q6 [facility] Last Admin: 12/31/17 12:50 Dose: 650 mg Amlodipine Besylate (Norvasc) 10 mg PO DAILY [facility] Docusate Sodium (Colace) 100 mg PO BID [facility] Last Admin: 12/31/17 10:13 Dose: 100 mg Enoxaparin Sodium (Lovenox) 40 mg SC Q24H [facility] Last Admin: 12/30/17 14:56 Dose: 40 mg Ergocalciferol (Drisdol 50,000 Intl Units Cap) 1 cap PO Q7D [facility] Last Admin: 12/30/17 09:58 Dose: 1 cap Ferrous Sulfate (Feosol) 325 mg PO BID [facility] Last Admin: 12/31/17 10:13 Dose: 325 mg Folic Acid (Folic Acid) 1 mg PO DAILY [facility] Last Admin: 12/31/17 10:13 Dose: 1 mg Hydromorphone HCl (Dilaudid) 1 mg IVP Q4H PRN PRN Reason: Pain, severe (8-10) Last Admin: 12/31/17 10:15 Dose: 1 mg Ceftriaxone Sodium 1 gm/ (Sodium Chloride) 100 mls @ 100 mls/hr IVPB Q24H [facility] PRN Reason: Protocol Methotrexate (Methotrexate) 10 mg PO QWK [facility] Last Admin: 12/30/17 11:35 Dose: 10 mg Ondansetron HCl (Zofran Inj) 4 mg IVP Q6H PRN PRN Reason: Nausea/Vomiting Oxycodone HCl (Oxycodone Immediate Release Tab) 10 mg PO Q4H PRN PRN Reason: Pain, moderate (4-7) Last Admin: 12/31/17 06:19 Dose: 10 mg Pantoprazole Sodium (Protonix Ec Tab) 40 mg PO DAILY [facility] Last Admin: 12/31/17 10:13 Dose: 40 mg Polyethylene Glycol (Miralax) 17 gm PO DAILY [facility] Last Admin: 12/31/17 10:13 Dose: 17 gm - Labs Labs: 12/31/17 07:05 12/31/17 07:05 Attending/Attestation - Attestation I have personally seen and examined this patient.: Yes I have fully participated in the care of the patient.: Yes I have reviewed all pertinent clinical information, including history, physical exam and plan: Yes Notes (Text): 12/31/17 14:10 Medical attending: Patient was seen and examined by me. Agree with the above note by the resident The patient was not in any acute distress. Hgb was slightly lower today at 9.3, continue to monitor. BP remains somewhat elevated, we increased the norvasc to 10 She is tolerating her diet, we encouraged also incentive spirometry Patient is participating with PT From what I understand patient is going to [facility] on Wednesday for further physical therapy thank you Tony Malhotra
[2017-12-31 07:13] LABS: BASO % 0.3 % (0.0-2.0); EOS % 0.3 % (0.0-4.0); HEMOGLOBIN 9.3 g/dL (11.0-16.0); LYMPH # 0.9 K/uL (1.0-4.3); LYMPH % 10.8 % (20.0-40.0); MEAN CELL VOLUME 91.5 fL (81.0-99.0); MEAN CORPUSCULAR HGB CONC 34.9 g/dL (33.0-37.0); MONO % 11.2 % (0.0-10.0); NEUT # 6.7 K/uL (1.8-7.0); NEUT % 77.4 % (50.0-75.0); RBC 2.9 Mil/uL (3.80-5.20); RED CELL DISTRIBUTION WIDTH 15.1 % (11.5-14.5); WHITE BLOOD COUNT 8.7 K/uL (4.8-10.8)
[2017-12-31 08:40] LABS: ALBUMIN 3.1 g/dL (3.5-5.0); CALCIUM 8.2 mg/dl (8.6-10.4)
[2017-12-31] MEDS: POLYETHYLENE GLYCOL 3350 17 GM/Dose PACKET PO SCH (10:13)
[2017-12-31] MEDS: Pantoprazole 40 mg EC Tab PO SCH (10:13)
[2017-12-31] MEDS: HYDROmorphone 1 mg/ml ISec IVP PRN (10:15)
--- NOTE | 2017-12-31 11:17 | RAD ---
Date of service: 12/31/2017 HISTORY: fever COMPARISON: No prior. FINDINGS: LUNGS: No active pulmonary disease. PLEURA: No significant pleural effusion identified, no pneumothorax apparent. CARDIOVASCULAR: Normal. OSSEOUS STRUCTURES: No significant abnormalities. VISUALIZED UPPER ABDOMEN: Normal. OTHER FINDINGS: None. IMPRESSION: No active disease.
[2017-12-31] MEDS ORDERED: Pneumococcal 23-Valent Vaccine IM ONE (14:00)
[2017-12-31 14:27] LABS: SQUAMOUS EPITHIAL 3 /hpf (0-5); URINE BILIRUBIN NEGATIVE (NEGATIVE); URINE BLOOD NEGATIVE (NEGATIVE); URINE CLARITY Clear (Clear); URINE COLOR Yellow (YELLOW); URINE GLUCOSE (UA) NORMAL (Normal); URINE LEUKOCYTE ESTERASE NEG Leu/uL (Negative); URINE PROTEIN NEGATIVE (NEGATIVE); URINE UROBILINOGEN NORMAL mg/dL (0.2-1.0)
[2017-12-31] MEDS: Enoxaparin 40 mg Syringe SC SCH (15:10)
--- NOTE | 2017-12-31 15:19 | CP.PCM.PN ---
Subjective - Date & Time of Evaluation Date of Evaluation: 12/31/17 Time of Evaluation: 15:16 - Subjective Subjective: Patient states she is in more pain today. Tolerating PT/CPM. Denies CP/SOB/ dizziness. Given toradol prior to dressing change, and patient states that controlled pain better than the narcotics. Objective - Vital Signs/Intake and Output Vital Signs (last 24 hours): Temp Pulse Resp BP Pulse Ox 98.7 F 95 H 20 149/50 L 96 12/31/17 07:55 12/31/17 07:55 12/31/17 07:55 12/31/17 07:55 12/31/17 07:55 - Medications Medications: Current Medications Acetaminophen (Tylenol 325mg Tab) 650 mg PO Q6 [facility] Last Admin: 12/31/17 12:50 Dose: 650 mg Amlodipine Besylate (Norvasc) 10 mg PO DAILY [facility] Docusate Sodium (Colace) 100 mg PO BID [facility] Last Admin: 12/31/17 10:13 Dose: 100 mg Enoxaparin Sodium (Lovenox) 40 mg SC Q24H [facility] Last Admin: 12/31/17 15:10 Dose: 40 mg Ergocalciferol (Drisdol 50,000 Intl Units Cap) 1 cap PO Q7D [facility] Last Admin: 12/30/17 09:58 Dose: 1 cap Ferrous Sulfate (Feosol) 325 mg PO BID [facility] Last Admin: 12/31/17 10:13 Dose: 325 mg Folic Acid (Folic Acid) 1 mg PO DAILY [facility] Last Admin: 12/31/17 10:13 Dose: 1 mg Hydromorphone HCl (Dilaudid) 1 mg IVP Q4H PRN PRN Reason: Pain, severe (8-10) Last Admin: 12/31/17 10:15 Dose: 1 mg Ceftriaxone Sodium 1 gm/ (Sodium Chloride) 100 mls @ 100 mls/hr IVPB Q24H [facility] PRN Reason: Protocol Ketorolac Tromethamine (Toradol) 30 mg IVP Q8H PRN PRN Reason: Pain, moderate (4-7) Methotrexate (Methotrexate) 10 mg PO QWK [facility] Last Admin: 12/30/17 11:35 Dose: 10 mg Ondansetron HCl (Zofran Inj) 4 mg IVP Q6H PRN PRN Reason: Nausea/Vomiting Oxycodone HCl (Oxycodone Immediate Release Tab) 10 mg PO Q4H PRN PRN Reason: Pain, moderate (4-7) Last Admin: 12/31/17 06:19 Dose: 10 mg Pantoprazole Sodium (Protonix Ec Tab) 40 mg PO DAILY [facility] Last Admin: 12/31/17 10:13 Dose: 40 mg Polyethylene Glycol (Miralax) 17 gm PO DAILY [facility] Last Admin: 12/31/17 10:13 Dose: 17 gm - Labs Labs: 12/31/17 07:05 12/31/17 07:05 - Extremities Exam Additional comments: RLE: elham dressing changed. Incision intact, small amount of serosang on dressing, no active drainage. ELHAM reapplied +ROM ankle/toes, sensation intact +DP/PT pulses calves soft NT eng homans Assessment and Plan (1) Osteoarthritis of right knee Assessment & Plan: POD#2 s/p right TKR plan for d/c to [facility] tomorrow, patient approved, social services coordinator to arrange transportation tomorrow ELHAM dressing to remain intact until 01/05, then apply dry sterile bandage and aleks knee immobilizer only at night, remove during day f/u Dr. Aguirre approx 10-14 days, call for appointment continue WBAT RLE, CPM d/w Dr. Aguirre, agrees wt above Status: Acute (2) Vitamin D deficiency Assessment & Plan: continue supp, f/u PMD for reeval 3 months Status: Chronic (3) Anemia Status: Chronic (4) Acute blood loss anemia Assessment & Plan: cont iron/folate post op hemodynamically stable Status: Acute
[2017-12-31] MEDS ORDERED: oxyCODONE 5 mg Immediate Release Tab PO PRN (15:30)
[2018-01-01 08:19] LABS: BASO % 0.5 % (0.0-2.0); EOS # 0.1 K/uL (0.0-0.7); EOS % 0.8 % (0.0-4.0); HEMOGLOBIN 8.3 g/dL (11.0-16.0); LYMPH # 1.1 K/uL (1.0-4.3); LYMPH % 14.8 % (20.0-40.0); MEAN CELL VOLUME 91.9 fL (81.0-99.0); MEAN CORPUSCULAR HEMOGLOBIN 31.6 pg (27.0-31.0); MEAN CORPUSCULAR HGB CONC 34.4 g/dL (33.0-37.0); MEAN PLATELET VOLUME 8.7 fL (7.2-11.7); MONO # 0.3 K/uL (0.0-0.8); MONO % 3.7 % (0.0-10.0); NEUT # 5.9 K/uL (1.8-7.0); NEUT % 80.2 % (50.0-75.0); RBC 2.64 Mil/uL (3.80-5.20); RED CELL DISTRIBUTION WIDTH 15.1 % (11.5-14.5); WHITE BLOOD COUNT 7.3 K/uL (4.8-10.8)
[2018-01-01 09:06] LABS: ALB/GLOB RATIO 0.9 (1.0-2.1); ALBUMIN 2.9 g/dL (3.5-5.0); CALCIUM 8.2 mg/dl (8.6-10.4)
[2018-01-01] MEDS: Pantoprazole 40 mg EC Tab PO SCH (09:31)
[2018-01-01] MEDS: POLYETHYLENE GLYCOL 3350 17 GM/Dose PACKET PO SCH (09:32)
[2018-01-01] MEDS: Enoxaparin 40 mg Syringe SC SCH (16:05)
[2018-01-01 16:47] VITALS: BP 145/71; PULSE 89; RESP 20; TEMP 98.4; O2SAT 97
--- NOTE | 2018-01-01 21:19 | CP.PCM.DIS ---
<Flako Chavez - Last Filed: 01/01/18 21:12> Provider - Provider Date of Admission: 12/29/17 08:18 Attending physician: Tony Malhotra DO Time Spent in preparation of Discharge (in minutes): 45 Hospital Course - Lab Results Lab Results: Micro Results 12/29/17 Unknown Other: Please Indicate Mycobacterial Culture - Preliminary 12/29/17 Unknown Knee - Right Gram Stain - Final 12/29/17 Unknown Knee - Right Wound Culture - Final No growth. 12/29/17 Unknown Knee - Right Gram Stain - Final 12/29/17 Unknown Knee - Right Wound Culture - Final No growth. 12/29/17 Unknown Knee - Right Gram Stain - Final 12/29/17 Unknown Knee - Right Wound Culture - Final No growth. 12/29/17 Unknown Knee - Right Gram Stain - Final 12/29/17 Unknown Knee - Right Wound Culture - Final No growth. 12/29/17 Unknown Knee - Right Gram Stain - Final 12/29/17 Unknown Knee - Right Wound Culture - Final No growth. 12/29/17 Unknown Knee - Right Gram Stain - Final 12/29/17 Unknown Knee - Right Wound Culture - Final No growth. 12/29/17 Unknown Knee - Right Gram Stain - Final 12/29/17 Unknown Knee - Right Wound Culture - Final No growth. 12/31/17 13:50 Urine,Clean Catch Urine Culture - Final No Growth (<1,000 CFU/ML) 12/29/17 Unknown Knee - Right Gram Stain - Final 12/29/17 Unknown Knee - Right Wound Culture - Final No growth. 12/30/17 20:35 Urine Urine Culture - Final No Growth (<1,000 CFU/ML) 12/29/17 Unknown Body Fluid - Knee-Right Anaerobic Culture - Final NO ANAEROBES ISOLATED. 12/29/17 15:46 Body Fluid - Knee-Right Fungal Smear - Final 12/29/17 15:32 Knee Right Gram Stain - Final 12/29/17 Unknown Synovial Fluid Gram Stain - Final Most Recent Lab Values WBC 7.3 K/uL (4.8-10.8) 01/01/18 08:02 RBC 2.64 Mil/uL (3.80-5.20) L 01/01/18 08:02 Hgb 8.3 g/dL (11.0-16.0) L 01/01/18 08:02 Hct 24.2 % (34.0-47.0) L 01/01/18 08:02 MCV 91.9 fL (81.0-99.0) 01/01/18 08:02 MCH 31.6 pg (27.0-31.0) H 01/01/18 08:02 MCHC 34.4 g/dL (33.0-37.0) 01/01/18 08:02 RDW 15.1 % (11.5-14.5) H 01/01/18 08:02 Plt Count 123 K/uL (130-400) L 01/01/18 08:02 MPV 8.7 fL (7.2-11.7) 01/01/18 08:02 Neut % (Auto) 80.2 % (50.0-75.0) H 01/01/18 08:02 Lymph % (Auto) 14.8 % (20.0-40.0) L 01/01/18 08:02 [facility] % (Auto) 3.7 % (0.0-10.0) 01/01/18 08:02 Eos % (Auto) 0.8 % (0.0-4.0) 01/01/18 08:02 Baso % (Auto) 0.5 % (0.0-2.0) 01/01/18 08:02 Neut # (Auto) 5.9 K/uL (1.8-7.0) 01/01/18 08:02 Lymph # (Auto) 1.1 K/uL (1.0-4.3) 01/01/18 08:02 [facility] # (Auto) 0.3 K/uL (0.0-0.8) 01/01/18 08:02 Eos # (Auto) 0.1 K/uL (0.0-0.7) 01/01/18 08:02 Baso # (Auto) 0.0 K/uL (0.0-0.2) 01/01/18 08:02 Sodium 135 mmol/L (132-148) 01/01/18 08:02 Potassium 4.0 mmol/L (3.6-5.2) 01/01/18 08:02 Chloride 102 mmol/L (98-107) 01/01/18 08:02 Carbon Dioxide 23 mmol/L (22-30) 01/01/18 08:02 Anion Gap 14 (10-20) 01/01/18 08:02 BUN 14 mg/dL (7-17) 01/01/18 08:02 Creatinine 1.2 mg/dL (0.7-1.2) 01/01/18 08:02 Est GFR ( Amer) 53 01/01/18 08:02 Est GFR (Non-Af Amer) 44 01/01/18 08:02 Random Glucose 107 mg/dL (65-105) H 01/01/18 08:02 Calcium 8.2 mg/dl (8.6-10.4) L 01/01/18 08:02 Total Bilirubin 0.5 mg/dL (0.2-1.3) 01/01/18 08:02 AST 35 U/L (14-36) 01/01/18 08:02 ALT 28 U/L (9-52) 01/01/18 08:02 Alkaline Phosphatase 74 U/L (38-126) 01/01/18 08:02 Total Protein 6.1 g/dL (6.3-8.3) L 01/01/18 08:02 Albumin 2.9 g/dL (3.5-5.0) L 01/01/18 08:02 Globulin 3.1 gm/dL (2.2-3.9) 01/01/18 08:02 Albumin/Globulin Ratio 0.9 (1.0-2.1) L 01/01/18 08:02 Vitamin B12 332 pg/mL (239-931) 12/30/17 07:15 25-OH Vitamin D Total < 12.8 NG/ML (30.0-100.0) L 12/30/17 07:15 Urine Color Yellow (YELLOW) 12/31/17 13:50 Urine Clarity Clear (Clear) 12/31/17 13:50 Urine pH 6.0 (5.0-8.0) 12/31/17 13:50 Ur Specific Colbert 1.012 (1.003-1.030) 12/31/17 13:50 Urine Protein Negative mg/dL (NEGATIVE) 12/31/17 13:50 Urine Glucose (UA) Normal mg/dL (Normal) 12/31/17 13:50 Urine Ketones Negative mg/dL (NEGATIVE) 12/31/17 13:50 Urine Blood Negative (NEGATIVE) 12/31/17 13:50 Urine Nitrate Negative (NEGATIVE) 12/31/17 13:50 Urine Bilirubin Negative (NEGATIVE) 12/31/17 13:50 Urine Urobilinogen Normal mg/dL (0.2-1.0) 12/31/17 13:50 Ur Leukocyte Esterase Neg Sg/uL (Negative) 12/31/17 13:50 Urine WBC (Auto) 1 /hpf (0-5) 12/31/17 13:50 Urine RBC (Auto) 1 /hpf (0-3) 12/31/17 13:50 Ur Squamous Epith Cells 3 /hpf (0-5) 12/31/17 13:50 Urine Bacteria Occ (<OCC) H 12/30/17 06:47 Hyaline Casts 3-5 /lpf (0-2) H 12/30/17 06:47 Fluid Type Synovial fluid 12/29/17 18:15 Synovial WBC 15.0 /mm3 (0.0-150.0) 12/29/17 18:15 Synovial RBC 346.0 /mm3 (0.0-0.0) H 12/29/17 18:15 Synovial Neutrophils 34.0 % (0-0) H 12/29/17 18:15 Synovial Lymphocytes 48.0 % (0-0) H 12/29/17 18:15 Synov Monos/Macrophage 18 % (0-0) H 12/29/17 18:15 Synovial Fluid Comment 12/29/17 18:15 Blood Type A POSITIVE 12/29/17 11:21 Antibody Screen Negative 12/29/17 11:21 - Hospital Course Hospital Course: This is a 77 year old female with PMHx of HTN, RA, Anemia and Constipation who is s/p right total knee replacement POD #0 (12/29/17) by Dr. Aguirre. Patient reports her pain is well controlled. She states she feels a little groggy but otherwise no acute complaints. Denied any associated fever, chills, headache, chest pain, shortness of breath, abdominal pain, n/v/d/c, or urinary symptoms. For her Right Total Knee replacement, the following meds were ordered: Tylenol, percocet, and dilaudid PRN for pain, Zofran PRN for nausea, PPX with Cefazolin x 2 bags, IVF x 2 bags. IVF were discontinued once patient was able to drink fluids orally. Right knee tap cytology were ordered by Dr Aguirre. Resumed Feosal BID, patient was Transfused 3 units PRBCs post op, Baseline hemoglobin ~ 9 seen on labs drawn on 12/09/17, patient received one bag of PRBC before discharge due to Hbg being 8.3 on 01/01. For patients history of HTN, patient was Resumed Norvasc 5mg PO daily. For patient history of Rheumatoid arthritis, patient was Resumed weekly MTX (due 01/05/18) and Folic Acid daily. For patient history of constipation, Colace BID, Miralax daily was given. for prophylaxis, Protonix for GI and Lovenox for DVT were given, SCDs c/i s/p surgery. Patient stable for discharge to [facility] when 1 unit PRBC completed as per Dr. Tony Malhotra. Patient resume all home medications. Patient should make an appointment and follow up with Orthopedic surgeon Dr Aguirre within 10 days. Continue Physical therapy at [facility]. Patient should return to ED immediately if symptoms return or worsen. Instructions discussed with patient who understood and agreed. This is brief summary of patient's hospitalization course. For more complete information, please see patient's EMR. - Date & Time of H&P Date of H&P: 01/01/18 Time of H&P: 10:30 Discharge Exam - Head Exam Head Exam: ATRAUMATIC, NORMOCEPHALIC - Eye Exam Eye Exam: EOMI, Normal appearance, PERRL Pupil Exam: NORMAL ACCOMODATION - ENT Exam ENT Exam: Mucous Membranes Moist, Normal Exam - Neck Exam Neck exam: Full Rom - Respiratory Exam Respiratory Exam: Clear to PA & Lateral, NORMAL BREATHING PATTERN, UNREMARKABLE - Cardiovascular Exam Cardiovascular Exam: REGULAR RHYTHM, +S1, +S2 - GI/Abdominal Exam GI & Abdominal Exam: Normal Bowel Sounds, Unremarkable. absent: Tenderness - Back Exam Additional comments: right leg braced - Neurological Exam Neurological exam: Alert, CN II-XII Intact, Oriented x3 - Psychiatric Exam Psychiatric exam: Normal Affect, Normal Mood - Skin Skin Exam: Intact, Normal Color, Warm Discharge Plan - Follow Up Plan Condition: GOOD Disposition: REHAB FACILITY/REHAB UNIT Instructions: Vitamin D Deficiency, Osteoarthritis (DC), Total Knee Replacement (DC), Normocytic Normochromic Anemia (DC) Additional Instructions: Patient stable for discharge to [facility] when 1 unit PRBC completed as per Dr. Tony Malhotra. Patient resume all home medications. Patient should make an appointment and follow up with Orthopedic surgeon Dr Aguirre within 10 days. Continue Physical therapy at [facility]. Patient should return to ED immediately if symptoms return or worsen. Instructions discussed with patient who understood and agreed. Referrals: Fercho Aguirre III, MD [Staff Provider] - <Tony Malhotra - Last Filed: 01/02/18 07:28> Provider - Provider Date of Admission: 12/29/17 08:18 Attending physician: Tony Malhotra DO Hospital Course - Lab Results Lab Results: Micro Results 12/29/17 Unknown Other: Please Indicate Mycobacterial Culture - Preliminary 12/29/17 Unknown Knee - Right Gram Stain - Final 12/29/17 Unknown Knee - Right Wound Culture - Final No growth. 12/29/17 Unknown Knee - Right Gram Stain - Final 12/29/17 Unknown Knee - Right Wound Culture - Final No growth. 12/29/17 Unknown Knee - Right Gram Stain - Final 12/29/17 Unknown Knee - Right Wound Culture - Final No growth. 12/29/17 Unknown Knee - Right Gram Stain - Final 12/29/17 Unknown Knee - Right Wound Culture - Final No growth. 12/29/17 Unknown Knee - Right Gram Stain - Final 12/29/17 Unknown Knee - Right Wound Culture - Final No growth. 12/29/17 Unknown Knee - Right Gram Stain - Final 12/29/17 Unknown Knee - Right Wound Culture - Final No growth. 12/29/17 Unknown Knee - Right Gram Stain - Final 12/29/17 Unknown Knee - Right Wound Culture - Final No growth. 12/31/17 13:50 Urine,Clean Catch Urine Culture - Final No Growth (<1,000 CFU/ML) 12/29/17 Unknown Knee - Right Gram Stain - Final 12/29/17 Unknown Knee - Right Wound Culture - Final No growth. 12/30/17 20:35 Urine Urine Culture - Final No Growth (<1,000 CFU/ML) 12/29/17 Unknown Body Fluid - Knee-Right Anaerobic Culture - Final NO ANAEROBES ISOLATED. 12/29/17 15:46 Body Fluid - Knee-Right Fungal Smear - Final 12/29/17 15:32 Knee Right Gram Stain - Final 12/29/17 Unknown Synovial Fluid Gram Stain - Final Most Recent Lab Values WBC 7.3 K/uL (4.8-10.8) 01/01/18 08:02 RBC 2.64 Mil/uL (3.80-5.20) L 01/01/18 08:02 Hgb 8.3 g/dL (11.0-16.0) L 01/01/18 08:02 Hct 24.2 % (34.0-47.0) L 01/01/18 08:02 MCV 91.9 fL (81.0-99.0) 01/01/18 08:02 MCH 31.6 pg (27.0-31.0) H 01/01/18 08:02 MCHC 34.4 g/dL (33.0-37.0) 01/01/18 08:02 RDW 15.1 % (11.5-14.5) H 01/01/18 08:02 Plt Count 123 K/uL (130-400) L 01/01/18 08:02 MPV 8.7 fL (7.2-11.7) 01/01/18 08:02 Neut % (Auto) 80.2 % (50.0-75.0) H 01/01/18 08:02 Lymph % (Auto) 14.8 % (20.0-40.0) L 01/01/18 08:02 [facility] % (Auto) 3.7 % (0.0-10.0) 01/01/18 08:02 Eos % (Auto) 0.8 % (0.0-4.0) 01/01/18 08:02 Baso % (Auto) 0.5 % (0.0-2.0) 01/01/18 08:02 Neut # (Auto) 5.9 K/uL (1.8-7.0) 01/01/18 08:02 Lymph # (Auto) 1.1 K/uL (1.0-4.3) 01/01/18 08:02 [facility] # (Auto) 0.3 K/uL (0.0-0.8) 01/01/18 08:02 Eos # (Auto) 0.1 K/uL (0.0-0.7) 01/01/18 08:02 Baso # (Auto) 0.0 K/uL (0.0-0.2) 01/01/18 08:02 Sodium 135 mmol/L (132-148) 01/01/18 08:02 Potassium 4.0 mmol/L (3.6-5.2) 01/01/18 08:02 Chloride 102 mmol/L (98-107) 01/01/18 08:02 Carbon Dioxide 23 mmol/L (22-30) 01/01/18 08:02 Anion Gap 14 (10-20) 01/01/18 08:02 BUN 14 mg/dL (7-17) 01/01/18 08:02 Creatinine 1.2 mg/dL (0.7-1.2) 01/01/18 08:02 Est GFR ( Amer) 53 01/01/18 08:02 Est GFR (Non-Af Amer) 44 01/01/18 08:02 Random Glucose 107 mg/dL (65-105) H 01/01/18 08:02 Calcium 8.2 mg/dl (8.6-10.4) L 01/01/18 08:02 Total Bilirubin 0.5 mg/dL (0.2-1.3) 01/01/18 08:02 AST 35 U/L (14-36) 01/01/18 08:02 ALT 28 U/L (9-52) 01/01/18 08:02 Alkaline Phosphatase 74 U/L (38-126) 01/01/18 08:02 Total Protein 6.1 g/dL (6.3-8.3) L 01/01/18 08:02 Albumin 2.9 g/dL (3.5-5.0) L 01/01/18 08:02 Globulin 3.1 gm/dL (2.2-3.9) 01/01/18 08:02 Albumin/Globulin Ratio 0.9 (1.0-2.1) L 01/01/18 08:02 Vitamin B12 332 pg/mL (239-931) 12/30/17 07:15 25-OH Vitamin D Total < 12.8 NG/ML (30.0-100.0) L 12/30/17 07:15 Urine Color Yellow (YELLOW) 12/31/17 13:50 Urine Clarity Clear (Clear) 12/31/17 13:50 Urine pH 6.0 (5.0-8.0) 12/31/17 13:50 Ur Specific Colbert 1.012 (1.003-1.030) 12/31/17 13:50 Urine Protein Negative mg/dL (NEGATIVE) 12/31/17 13:50 Urine Glucose (UA) Normal mg/dL (Normal) 12/31/17 13:50 Urine Ketones Negative mg/dL (NEGATIVE) 12/31/17 13:50 Urine Blood Negative (NEGATIVE) 12/31/17 13:50 Urine Nitrate Negative (NEGATIVE) 12/31/17 13:50 Urine Bilirubin Negative (NEGATIVE) 12/31/17 13:50 Urine Urobilinogen Normal mg/dL (0.2-1.0) 12/31/17 13:50 Ur Leukocyte Esterase Neg Sg/uL (Negative) 12/31/17 13:50 Urine WBC (Auto) 1 /hpf (0-5) 12/31/17 13:50 Urine RBC (Auto) 1 /hpf (0-3) 12/31/17 13:50 Ur Squamous Epith Cells 3 /hpf (0-5) 12/31/17 13:50 Urine Bacteria Occ (<OCC) H 12/30/17 06:47 Hyaline Casts 3-5 /lpf (0-2) H 12/30/17 06:47 Fluid Type Synovial fluid 12/29/17 18:15 Synovial WBC 15.0 /mm3 (0.0-150.0) 12/29/17 18:15 Synovial RBC 346.0 /mm3 (0.0-0.0) H 12/29/17 18:15 Synovial Neutrophils 34.0 % (0-0) H 12/29/17 18:15 Synovial Lymphocytes 48.0 % (0-0) H 12/29/17 18:15 Synov Monos/Macrophage 18 % (0-0) H 12/29/17 18:15 Synovial Fluid Comment 12/29/17 18:15 Blood Type A POSITIVE 12/29/17 11:21 Antibody Screen Negative 12/29/17 11:21 Attending/Attestation - Attestation I have personally seen and examined this patient.: Yes I have fully participated in the care of the patient.: Yes I have reviewed all pertinent clinical information, including history, physical exam and plan: Yes Notes (Text): 01/02/18 07:24 Medical attending: Patient was seen and examined by me. Agree with the above note by the resident. The patient reported she did well overnight also she had an ok time at sleeping unlike previous night. The patient reported that the pain was controlled as well. The patient Hgb did decrease again. She denied palpitations or weakness at rest. However given that she will be going to PT/Rehab program we opted to give her one more unit of PRBCs There is also probably anemia of chronic disease as well from the RA that she has. thank you Tony Malhotra
== END 2018-01-01 17:59 | DRG 470 ==
LOC: C.9S 08:18 → C.6T 10:30
PROVIDERS: ADMIT Hospitalist; ATTEND Hospitalist
PROC: 0SRC0J9 Replacement of Right Knee Joint with Synthetic Substitute, Cemented, Open Approach (ICD-10-PCS; principal; 2017-12-29 12:00)
DX: M17.11 Unilateral primary osteoarthritis, right knee (principal); M25.561 Pain in right knee; M65.9 Synovitis and tenosynovitis, unspecified; M06.9 Rheumatoid arthritis, unspecified; I12.9 Hypertensive chronic kidney disease with stage 1 through stage 4 chronic kidney disease, or unspecified chronic kidney disease; D64.9 Anemia, unspecified; K21.9 Gastro-esophageal reflux disease without esophagitis; N18.9 Chronic kidney disease, unspecified; E66.01 Morbid (severe) obesity due to excess calories; Z96.652 Presence of left artificial knee joint; Z90.710 Acquired absence of both cervix and uterus